=== PATIENT | male | born 1955 | race Two or more races ===

== ENCOUNTER → 2023-03-13 | Outpatient (CLI) | payer OTHER ==
[~2023-03-13] VITALS: Ht 167.6 cm; Wt 83.9 kg
[~2023-03-13] MED LIST: REGADENOSON 0.4 MG/5 ML SYRG IV ONE
== END | disposition home or self-care (01) ==
LOC: XY 09:43
PROVIDERS: ATTEND Specialist
DX: I10 Essential (primary) hypertension (principal); E78.5 Hyperlipidemia, unspecified; I47.10 Supraventricular tachycardia, unspecified; E11.9 Type 2 diabetes mellitus without complications
CPT/HCPCS: 78452; 93017; A9500; J2785